=== PATIENT | male | born 1950 | race Two or more races ===

== ENCOUNTER 2019-11-17 19:07 | Inpatient (IN) | payer MEDICARE ==
[~2019-11-17] VITALS: Ht 180.3 cm; Wt 90.7 kg
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
[2019-11-17] MEDS ORDERED: MAG HYDROX/AL HYDROX/SIMETH 30 ML UDC PO PRN (21:30)
[2019-11-17] MEDS ORDERED: TEMAZEPAM 7.5 MG CAPSULE PO PRN (21:30)
[2019-11-17] MEDS ORDERED: ACETAMINOPHEN 325 MG TABLET PO PRN (21:30)
[2019-11-17] MEDS ORDERED: MAGNESIUM HYDROXIDE 30 ML UDC PO PRN (21:30)
[2019-11-17] MEDS ORDERED: LORAZEPAM 0.5 MG TABLET PO PRN (21:30)
[2019-11-17] MEDS ORDERED: LISI10TA5 PO (21:32)
[2019-11-17] MEDS ORDERED: IBUP-1958 PO (21:49)
[2019-11-17] MEDS ORDERED: BLOOD SUGAR DIAGNOSTIC 1 EACH STRIP IN ONE (22:30)
[2019-11-18 07:20] LABS: BASOPHILS % (AUTO) 0.3 % (0.0-2.0); EOSINOPHILS % (AUTO) 2.3 % (0.0-6.0); HEMATOCRIT 41 % (39-51); HEMOGLOBIN 13.9 g/dL (13.5-17.5); LYMPHOCYTES # (AUTO) 1.1 /CMM (0.8-4.8); LYMPHOCYTES % (AUTO) 16.1 % (20.0-44.0); MEAN CORPUSCULAR HGB CONC 34 g/dl (31.0-36.0); MEAN CORPUSCULAR VOLUME 100 fL (80-96); MONOCYTES # (AUTO) 0.8 /CMM (0.1-1.30); NEUTROPHILS % (AUTO) 70.3 % (43.0-81.0); PLATELET COUNT (AUTO) 134 /CMM (150-450); RED BLOOD CELL COUNT(AUTO) 4.07 MIL/uL (4.5-6.0); WHITE BLOOD COUNT (AUTO) 7.1 K/uL (4.3-11.0)
[2019-11-18 07:32] LABS: CALCIUM, SERUM 8.4 mg/dL (8.5-10.1); CREATININE 0.9 mg/dL (0.6-1.3); POTASSIUM 3.9 mmol/L (3.5-5.1)
[2019-11-18 08:00] VITALS: BP 138/75
[2019-11-18] MEDS: LISINOPRIL (10MG) 10 MG TABLET PO SCH (08:43)
--- NOTE | 2019-11-18 08:43 | NUR ---
WOUND CARE CONSULT: PT PRESENTS WITH DRY ABRASIONS TO RT ELBOW, NOSE AND BILATERAL KNEES, PRESENT ON ADMISSION. PT DENIES TENDERNESS. THERE IS NO DRAINAGE. PT IS AMBULATORY AND CONTINENT. WILL SEE PRN.
--- NOTE | 2019-11-18 09:00 | NUR ---
RN NOTE- PT IN ROOM ALERT ORIENTED CALM DIRECTABLE DNIES ALL CHARGED GPS MONITOR MED COMPLIANT
--- NOTE | 2019-11-18 09:42 | NUR ---
FAMILY CONTACT: SW received a call from pts step-son Ignacio ([phone]) regarding pts discharge. SW attempted to gather collateral information, however, Ignacio became volatile and told SW, "It's none of your business where he lives and where he will be discharged to." SW ended the call as Ignacio became verbally aggressive and refused to provide SW with information regarding pts current living situation and current legal issues.
--- NOTE | 2019-11-18 10:36 | NUR ---
BARROW WORKER HELPER: KENNEDI received a call from Guest Service Aide Jim ([phone]) to inform SW that pt is currently on parole and wearing an ankle monitor that needs to charged every 12 hours. He states that pt is a registered child sex offender and arsonist and states pt was recently released from [facility] after serving a third term in custodial and found mentally incompetent. He states that pt is homeless and has refused housing services he also states that pts "step-son Ignacio" is not related to him and is just a friend whom is also a felon and is not allowed to be around him. Guest Service Aide Jim stated not to provide "Ignacio" with any information as that is a violation of pts parole. He states that pt can be released back to the streets if pt refuses placement. [place] [facility] request SW provide him with discharge information once pt is stable for discharge.
--- NOTE | 2019-11-18 12:26 | NUR ---
INITIAL DISCHARGE PLAN: Pt is homeless and will be discharged to a homeless halfway. SW will help form a safe and proper discharge in collaboration with .
--- NOTE | 2019-11-18 14:03 | NUR ---
GROUP NOTE: Pt is not appropriate for group on this day as pt is agitated and unpredictable with labile mood. Pt refused to attend and told SW to leave him alone.
[2019-11-18 16:00] VITALS: BP 151/81
[2019-11-18] MEDS: CARBIDOPA/LEVODOPA 25/100 MG 1 UDTAB PO SCH (16:50)
--- NOTE | 2019-11-18 19:50 | NUR ---
GPS RN NOTE, PATIENT HAS AN ORDER FOR REMERON 45MG PO AT 1999 AND A ORDER FOR REMERON 45 MG PO HS ABDOUL THIS P.M. PAGED DR LEAVITT AND INFORMED HIM OF MY FINDINGS TO CLARIFY THESE ORDERS. DR LEAVITT ORDERED TO DISCONTINUE REMERON 45MG PO HS AND TO DISCONTINUE REMERON [address] LEAVITT GAVE NEW ORDER TO GIVE REMERON 15MG PO HS ABDOUL. ALL ORDERS NOTED AND CARRIED OUT. WILL CONTINUE TO MONITOR THIS PATIENT WITH THE HELP OF STAFF.
[2019-11-18 20:00] VITALS: BP 117/71
[2019-11-18] MEDS ORDERED: MIRTAZAPINE 45 MG TABLET PO SCH ×2 (20:00)
[2019-11-18] MEDS: MIRTAZAPINE 15 MG TABLET PO SCH (21:31)
--- NOTE | 2019-11-18 21:32 | NUR ---
GPS RN notes Pt refused meds Remeron 15 mg/po. Made aware risks and benefits. Pt keep refusing. Pt stated " I don't want it!" Offered multiple times. Charge nurse is aware and informed.
[2019-11-19 08:00] VITALS: BP 140/70
[2019-11-19] MEDS: CARBIDOPA/LEVODOPA 25/100 MG 1 UDTAB PO SCH ×3 (09:51→18:22)
[2019-11-19] MEDS: LISINOPRIL (10MG) 10 MG TABLET PO SCH (09:51)
[2019-11-19 16:00] VITALS: BP 148/87
--- NOTE | 2019-11-19 16:55 | NUR ---
isolative,and walking out of rm. from time to time to use the phone.
[2019-11-19 20:02] VITALS: BP 129/73
[2019-11-19] MEDS: MIRTAZAPINE 15 MG TABLET PO SCH (21:38)
--- NOTE | 2019-11-20 06:55 | NUR ---
GPS RN CLOSING NOTE: PT AWAKE, ALERT AND ORIENTED X3. CALM AND COOPERATIVE, RESPIRATION EVEN AND UNLABORED WITH EQUAL RISE AND FALL OF THE CHEST, ON ROOM AIR. NO S/S OF ANY DISTRESS AT THIS TIME. NO BEHAVIORAL ISSUES THIS SHIFT. ENDORSING TO AM NURSE.
[2019-11-20 08:00] VITALS: BP 146/89
[2019-11-20] MEDS: CARBIDOPA/LEVODOPA 25/100 MG 1 UDTAB PO SCH ×3 (08:26→17:28)
[2019-11-20] MEDS: LISINOPRIL (10MG) 10 MG TABLET PO SCH (08:27)
[2019-11-20 16:00] VITALS: BP 138/82
[2019-11-20 20:00] VITALS: BP 136/78
[2019-11-20] MEDS: MIRTAZAPINE 15 MG TABLET PO SCH (21:12)
--- NOTE | 2019-11-20 22:00 | NUR ---
GPS RN NOTE:SKIN ASSESSMENT PATIENT REFUSED SKIN ASSESSMENT, DURING ASSESSMENT BY THE NURSE, NURSE NOTICED THAT THE PTS KNEES AND LOWER EXTREMITIES LOOK DIFFERENT FROM HOW IT LOOKS ON ADMISSION PHOTOS. SKIN LOOKED IRRITATED, RED, BOTH SITES LOOKS BIGGER THAN ADMISSION PHOTOS. NURSE ENCOURAGED PT WE DO PHOTO DOCUMENTATION BUT PT REFUSED, STATED SINCE I AM HERE IT LOOKS THE SAME, I KNOW MY SKIN. WOUND CONSULT WAS STILL ORDERED.
[2019-11-21 08:00] VITALS: BP 136/76
[2019-11-21] MEDS: CARBIDOPA/LEVODOPA 25/100 MG 1 UDTAB PO SCH ×3 (08:05→17:04)
[2019-11-21] MEDS: LISINOPRIL (10MG) 10 MG TABLET PO SCH (08:06)
[2019-11-21 20:10] VITALS: BP 125/84
[2019-11-21] MEDS: MIRTAZAPINE 15 MG TABLET PO SCH (21:49)
--- NOTE | 2019-11-22 01:42 | NUR ---
GPS-RN NOTE: RELAYED CHEST X-RAY RESULT TO DIRECTOR PEOPLESOFT BRYAN, MINIMAL INTERSTITIAL PROMINENCE MAY REFLECT CONGESTION OR INFLAMMATION WITH NO NEW ORDER AT THIS TIME.
[2019-11-22 08:00] VITALS: BP 116/74
[2019-11-22] MEDS: LISINOPRIL (10MG) 10 MG TABLET PO SCH (09:07)
[2019-11-22] MEDS: CARBIDOPA/LEVODOPA 25/100 MG 1 UDTAB PO SCH ×3 (09:08→16:48)
--- NOTE | 2019-11-22 09:20 | NUR ---
HOUSEKEEPER HOME: KNENEDI received a call from Seafood Processor Jim ([phone]) requesting updated information. KENNEDI informed him that pt is current a rule out for COVID and also informed him that pt is scheduled for a PC hearing on this day. KENNEDI also informed him that SW is unable to place pt due to his criminal record and informed him that pt will have to be discharged back to his [place] Office. Office Jim agreed with discharge plan and requested SW call him back with COVID results.
--- NOTE | 2019-11-22 09:27 | NUR ---
WOUND CARE CONSULT/FOLLOW UP: PT PRESENTS WITH ABRASIONS TO RT ARM AND LOWER EXTREMITIES WHICH WERE PRESENT ON ADMISSION BUT CHANGES NOTED AT THIS TIME. DRY ABRASION TO RT ARM IS NOW OPEN AND RT LOWER LEG HAS OPEN ABRASION, KNEES HAVE RAISED CRUSTED WOUNDS (PREVIOUSLY DRY ABRASIONS ON ADMISSION). RECOMMENDATIONS MADE FOR SKIN PROTECTION AND WOUND CARE. RECOMMEND SURGICAL CONSULT FOR KNEES. DR GALLITO MURPHY NOTIFIED OF CONSULT REQUEST. PT IS AMBULATORY AND CONTINENT. IN AGREEMENT WITH PLAN OF CARE. Addendum: 11/22/19 at 0930 by JODI POOLE WNDNU Amended: Links added.
--- NOTE | 2019-11-22 15:19 | NUR ---
INDIVIDUAL NOTE: Pt unable to participate in group milieu at this time as pt is currently in isolation due to rule out for COVID-19.
[2019-11-22 16:00] VITALS: BP 158/80
--- NOTE | 2019-11-22 16:07 | NUR ---
WATER CONTROL SUPERVISOR: KENNEDI contacted Hand Paster Jim ([phone]) to inform him pts COVID-19 test is negative.
[2019-11-22 20:02] VITALS: BP 115/62
[2019-11-22] MEDS: MIRTAZAPINE 15 MG TABLET PO SCH (22:17)
[2019-11-23 08:00] VITALS: BP 100/72
[2019-11-23] MEDS: CARBIDOPA/LEVODOPA 25/100 MG 1 UDTAB PO SCH ×3 (08:31→16:11)
[2019-11-23] MEDS: LISINOPRIL (10MG) 10 MG TABLET PO SCH (08:32)
--- NOTE | 2019-11-23 09:08 | NUR ---
PATIENT IS AMBULATING THROUGHOUT UNIT THIS AM. PATIENT IS CURRENTLY SITTING IN CHAIR, CHARGING ANKLE BRACELET. COMPLIANT WITH MEDICATIONS. HELD LISINOPRIL DUE TO DECREASED BP.
--- NOTE | 2019-11-23 14:51 | NUR ---
INDIVIDUAL NOTE: Pt unable to participate in group milieu at this time as pt is currently in isolation due to rule out for COVID-19.
[2019-11-23 16:00] VITALS: BP 121/73
[2019-11-23 20:02] VITALS: BP_SYST 127; BP_SYST 129; BP_DIAS 70; BP_DIAS 81
[2019-11-23] MEDS: MIRTAZAPINE 15 MG TABLET PO SCH (21:17)
--- NOTE | 2019-11-24 07:12 | NUR ---
GPS RN OPENING NOTES RECEIVED PT AWAKE IN BED AT THIS TIME, AO X2-3. PT IS CALM AND COOPERATIVE. RESPIRATION EVEN AND UNLABORED WITH EQUAL RISE AND FALL IN THE CHEST. NO S/S OF ANY ACUTE DISTRESS NOTED AT THIS TIME. NO C/O OF PAIN OR DISCOMFORT. PT DENIES SI AT THIS TIME. FALL AND SAFETY PRECAUTIONS IN PLACE AND OBSERVED AT ALL TIMES. BED IN LOWEST LOCKED POSITION, SIDE RAILS UP,HOB ELEVATED TO SEMI FOWLERS POSITION, CALL LIGHT WITHIN REACH. WILL CONTINUE TO MONITOR Q 15 MIN FOR SAFETY AND BEHAVIOR.
[2019-11-24 08:00] VITALS: BP 132/86
--- NOTE | 2019-11-24 08:34 | NUR ---
COIN COUNTER AND WRAPPER: KENNEDI contacted Campaign Marketing Manager Jim ([phone]) and left a voicemail informing him pt is being discharged tomorrow Thursday11/25/19 back to his parole office. KENNEDI requested a call back to coordinate discharge.
[2019-11-24] MEDS: CARBIDOPA/LEVODOPA 25/100 MG 1 UDTAB PO SCH ×3 (09:15→16:43)
[2019-11-24] MEDS: LISINOPRIL (10MG) 10 MG TABLET PO SCH (09:16)
--- NOTE | 2019-11-24 14:00 | NUR ---
SPORTS INTERN: SW received a call from Education Technician Jim ([phone]) who agreed with pts discharge plan tomorrow back to his office.
--- NOTE | 2019-11-24 14:47 | NUR ---
INDIVIDUAL INTERVENTION: SW met with pt to discuss his discharge plan for tomorrow Thursday11/25/19. SW informed him that he will be discharged back to his Gang Plank Workman's office via taxi and pt agreed.
[2019-11-24 16:00] VITALS: BP 102/65
--- NOTE | 2019-11-24 17:00 | NUR ---
DR LEAVITT HAD TELEMEDICINE/HEALTH ASSESSMENT AND CONSULT WITH PATIENT. NO NEW ORDERS. WILL CONTINUE TO MONITOR
--- NOTE | 2019-11-24 17:42 | NUR ---
PT REFUSED WOUND CARE/TREATMENT ON RIGHT ELBOW ABRASION AND RIGHT LOWER LEG ABRASION. DAMI CHARGE NURSE MADE AWARE, WILL CONTINUE TO MONITOR
--- NOTE | 2019-11-24 19:03 | NUR ---
GPS RN CLOSING NOTES PT SITTING IN HALLWAY AT THIS TIME. PT REMAINED STABLE THROUGHOUT SHIFT. ALL CARE, NEEDS, TREATMENT AND MEDICATIONS ADMINISTERED ANTICIPATED PER ORDER. FALL AND SAFETY PRECAUTIONS IN PLACE AND OBSERVED AT ALL TIMES. WILL ENDORSE TO TRACK MAINTAINER NURSE FOR ANGELA.
[2019-11-24 20:19] VITALS: BP 105/68
[2019-11-24] MEDS: MIRTAZAPINE 15 MG TABLET PO SCH (21:08)
[2019-11-25 08:00] VITALS: BP 113/80
[2019-11-25] MEDS: CARBIDOPA/LEVODOPA 25/100 MG 1 UDTAB PO SCH (08:20)
[2019-11-25 08:21] VITALS: BP 113/80
[2019-11-25] MEDS: LISINOPRIL (10MG) 10 MG TABLET PO SCH (08:21)
--- NOTE | 2019-11-25 08:39 | NUR ---
DISCHARGE NOTE: Pt will be discharged at 9:00am via [facility] taxi voucher to his [place] [facility] [address] [place] [address] where he will report to Boat Wrapper Jim ([phone]) who has been notified and agrees with discharge plan. Pts mood is dysphoric with flat affect. Pt denied visual/auditory hallucinations and denied suicidal/homicidal ideation. Pt was given a referral to follow up with Mental Health services [facility] [address] [facility] [address] and to follow up with Personal Computer Specialist Dr. Richter [address] [facility] [address] for any medical needs. per Boat Wrapper he will set up follow up appointments with mental health services as a condition to his [place]. The multidisciplinary exit care form was done, printed, signed, and given to the patient.
--- NOTE | 2019-11-25 09:33 | NUR ---
GPS EN DISCHARGE NOTE: PATIENT DISCHARGED TODAY AT 0905 VIA TAXI COUCHER TO [address] [facility] [place] [address] ACCOMPANIED BY 1 STAFF TO THE MAIN LOBBY PATIENT IS IN STABLE CONDITION. VSS. NO ACUTE DISTRESS NOTED. NO COMPLAINTS. COMPLIANT WITH MEDICATION MANAGEMENT. COOPERATIVE WITH PLAN OF CARE. PSYCHIATRIC TREATMENT PLANS MET. MEDICAL TREATMENT PLANS DEFERRED FOR CONTINUAL MONITORING. DENIES SI/HI/VAH AT THE TIME OF DISCHARGE. PATIENT REFUSED ASSESSMENT PICTURES TO BE TAKEN. EDUCATED PATIENT ABOUT AFTERCARE WITH COPY PROVIDED. RETURNED PERSONAL BELONGINGS TO PATIENT. MEDICATIONS RECONCILED WITH ALONG WITH PSYCHIATRIC DISCHARGE ORDERS. DISCHARGE PAPERWORK GIVEN FOR FOLLOW UP WITH PSYCHIATRIST AND GARNETTER WITHIN 1 WEEK.
== END 2019-11-25 09:05 | disposition home or self-care (01) | DRG 885 ==
LOC: GPS 20:39
PROVIDERS: ADMIT Psychiatry & Neurology Psychiatry; ATTEND Internal Medicine
DX: F32.2 Major depressive disorder, single episode, severe without psychotic features (principal); F23 Brief psychotic disorder; F41.9 Anxiety disorder, unspecified; I10 Essential (primary) hypertension; M62.81 Muscle weakness (generalized); R27.8 Other lack of coordination; S80.212A Abrasion, left knee, initial encounter; S80.211A Abrasion, right knee, initial encounter; S50.312A Abrasion of left elbow, initial encounter; S50.311A Abrasion of right elbow, initial encounter; W18.30XA Fall on same level, unspecified, initial encounter; Y92.89 Other specified places as the place of occurrence of the external cause; Z91.81 History of falling
CPT/HCPCS: 36415; 71045-TC; 80048-TC; 80061-TC; 85025-TC; 87081-TC; 97116-TC; 97530-TC; U0003-CS